=== PATIENT | female | born 1955 | race African-American/Black ===

== ENCOUNTER 2021-02-26 17:00 | Emergency (ER) | payer MEDICAID ==
[~2021-02-26] VITALS: Ht 162.6 cm; Wt 63.0 kg
[2021-02-26] MEDS ORDERED: IBUP-2029 MT (21:06)
[2021-02-26] MEDS ORDERED: CYCL10TA7 MT (21:06)
[2021-02-26] MEDS ORDERED: IBUPROFEN 600MG TABLET PO ONE (21:15)
[2021-02-26] MEDS ORDERED: CYCLOBENZAPRINE 10MG TABLET PO ONE (21:15)
[2021-02-26 22:23] VITALS: BP 114/77
== END 2021-02-26 22:23 | disposition home or self-care (01) ==
LOC: ER 17:00
DX: M79.18 Myalgia, other site (principal)
CPT/HCPCS: 99283